=== PATIENT | female | born 1945 | race Caucasian/White ===

== ENCOUNTER 2022-05-29 08:55 | Outpatient (CLI) | payer MEDICARE, OTHER | END 2022-05-29 23:59 | disposition EMS.NT | LOC: EMS 08:55 | DX: R68.83 Chills (without fever) (principal); R53.81 Other malaise ==

== ENCOUNTER 2022-12-13 07:51 | Outpatient (CLI) | payer MEDICARE, OTHER ==
[2022-12-13 14:12] LABS: HCT - HEMATOCRIT 42.9 % (37.0-47.0); HGB - HEMOGLOBIN 13.4 g/dL (12.0-16.0); MEAN CORPUSCULAR HEMOGLOBIN 29.3 pg (27.0-31.0); MEAN CORPUSCULAR HGB CONC 31.2 g/dL (32.0-36.0); MEAN CORPUSCULAR VOLUME 93.9 fL (81.0-99.0); RED BLOOD COUNT 4.57 10^6/uL (4.20-5.40); RED CELL DISTRIBUTION WIDTH 13.4 % (12.0-15.0); WHITE BLOOD COUNT 4.2 x10^3/uL (4.8-10.8)
== END 2022-12-13 07:52 | disposition home or self-care (01) ==
LOC: LAB.S 07:51
PROVIDERS: ATTEND Internal Medicine
DX: G50.9 Disorder of trigeminal nerve, unspecified (principal); K08.9 Disorder of teeth and supporting structures, unspecified
CPT/HCPCS: 36415; 85027; 85651; 86140

== ENCOUNTER 2023-01-13 09:19 | Outpatient (CLI) | payer MEDICARE, OTHER | END 2023-01-13 09:20 | disposition home or self-care (01) | LOC: LAB.S 09:19 | PROVIDERS: ATTEND Internal Medicine | DX: Z53.9 Procedure and treatment not carried out, unspecified reason (principal) | CPT/HCPCS: 36415; 82728; 83540; 84436; 84443; 84466; 84481; 85027; 85651; 86140 ==